=== PATIENT | female | born 1940 | race Caucasian/White ===

== ENCOUNTER 2022-04-22 09:10 | Day surgery (SDC) | payer MEDICARE, SELFPAY ==
[2022-04-14 15:18] VITALS: BMI 22.4
--- NOTE | 2022-04-22 09:10 | WPDHPUPDATE1 ---
History and Physical Update Update Date/Time: 04/22/22 09:10 History and Physical has been reviewed, including an updated exam of the patient. There are NO changes in the patient's condition. Risks, benefits, and alternatives have been discussed and questions answered. Patient agrees to proceed with procedure.
[2022-04-22] MEDS: OFLOXACIN 0.3% OPHTH SOLN 5 ML BTL 1 DROP AFFCTD EYE (10:30)
[2022-04-22] MEDS: TETRACAINE HCL 0.5% OPHTH SOLN 4 ML BTL 1 DROP AFFCTD EYE ×3 (10:30→10:40)
[2022-04-22 10:49] VITALS: BP 137/77; PULSE 70; RESP 20; TEMP 36.2; O2SAT 100
--- NOTE | 2022-04-22 10:50 | P.PNAN_ITS ---
Anes - Initial Pre Proc Eval Procedure: Operation Date: 04/22/22 11:00 Proposed Procedures p Cataract Extraction with Lens Implant-Right Eye - Capo Garzon MD Date/Time: 04/22/22 10:50 Surgeon: Capo Garzon MD Pre Op Diagnosis: Cataract Right Eye Patient Data Age: 81 Gender: F Height: 1.68 m Weight: 63 kg Last Vital Signs Temp 36.2 C L 04/22/22 10:49 Pulse 70 04/22/22 10:49 Resp 20 04/22/22 10:49 BP 137/77 04/22/22 10:49 Pulse Ox 100 04/22/22 10:49 O2 Del Method Room Air 04/22/22 10:49 Allergies Allergy/AdvReac Type Severity Reaction Status Date / Time NKDA Allergy Unknown NKDA Uncoded 04/14/22 15:17 Home Medications Medication Instructions Recorded Confirmed Type temazepam 15 mg capsule 15 mg PO DAILY #90 caps 12/01/21 04/14/22 Rx Patient hx anesthesia problems: none Family hx anesthesia problems: none Results Review: All pre-operative results and documents have been reviewed as part of the pre- operative evaluation. PMFSH Past Medical History Medical History Insomnia Tinnitus Surgical History Surgical History H/O section Hx of breast reduction, elective Family History Family History Father Multiple sclerosis Mother Heart problem Social History Social History Smoking status: Never smoker Second hand tobacco smoke exposure: No Alcohol intake: current Substance use: never Substance use type: does not use Living arrangements: with family Gender identity (if verbalized by the patient): Female Spiritual care concerns: No Agree to blood products: Yes Anes - Eval Final PreProcedure Day of Procedure 04/22/22 10:50 Patient weight: normal Heart: regular rate and rhythm Lungs: clear to auscultation Airway: Mallampati scale class II Neurological: other (alert) Last oral intake: >/= 8 hours ASA classification: II Emergent: no Anesthetic plan: proceed Anesthesia type and monitoring: monitored anesthesia care and standard monitoring Results Review: All pre-operative results and documents have been reviewed as part of the pre- operative evaluation. Informed Consent: The patient's anesthetic plan and its attendant risks and benefits were discussed with the patient/family/POA. Questions were solicited and answers provided to the satisfaction of the patient/family/POA.
[2022-04-22] MEDS: LIDOCAINE HCL 2% JELLY 5 ML TUBE 1 APPLIC AFFCTD EYE (11:38)
[2022-04-22] MEDS: LIDOCAINE HCL 1% PF INJ 5 ML VIAL 1 ML INTRAOCULA (11:40)
[2022-04-22] MEDS: HOME MEDICATION 1 EACH AFFCTD EYE (11:53)
[2022-04-22] MEDS: NEOMYCIN/POLYMYXIN/DEXAMETH OP OINT 3.5 GM TUBE 1 APPLIC AFFCTD EYE (11:54)
--- NOTE | 2022-04-22 11:54 | W.PM.PROC2 ---
Procedure Note - Detailed Date of Procedure 04/22/22 Pre-op Diagnosis Cataract Right Eye Post-op Diagnosis Same Procedure Performed Cataract Extraction (by Phacoemulsification) and lntraocular Lens Implant RIGHT eye Surgeon Capo Garzon MD Description of Procedure The eye was anesthetized with topical 0.75% bupivacaine. After intravenous sedation and placement of monitors, the patient was prepped and draped in the usual sterile manner. A lid speculum was placed. A paracentesis was made, and preservative free 1% lidocaine was instilled in the anterior chamber. The anterior chamber was then filled with Viscoat viscoelastic. A mickey keratome was used to create the wound. Continuous tear anterior capsulotomy was performed. The lens was hydro dissected before being removed with phacoemulsification. The remaining lenticular cortex was removed with aspiration. The capsular bag was polished and filled with viscoelastic material. An intraocular lens was chosen, inspected, irrigated and placed within the capsular bag where it was seen to be centered and stable. The viscoelastic material was aspirated. The wound was closed and found to be watertight. Ciloxan drops were placed in the eye. The speculum was removed. A Clemente shield was applied. The patient tolerated the procedure well and left the operating room in satisfactory condition. Implants See chart Complications None Condition Stable Disposition Same day
[2022-04-22 11:56] VITALS: BP 141/78; PULSE 63; RESP 19; O2SAT 99
--- NOTE | 2022-04-22 12:09 | WPDANESPN ---
Anes - Prog Note Post-Op Date/Time: 04/22/22 12:09 Cardiovascular status: normal Respiratory status: normal Airway patency: baseline Mental status: baseline Post-Op hydration status: normal Vital Signs: Last Vital Signs Temp 36.2 C L 04/22/22 10:49 Pulse 63 04/22/22 11:56 Resp 19 04/22/22 11:56 BP 141/78 H 04/22/22 11:56 Pulse Ox 99 04/22/22 11:56 O2 Del Method Room Air 04/22/22 11:56 Pain Score (VAS): 0 Patient Feedback: Patient satisfied with anesthetic care.
[2022-04-22] MEDS: acetaZOLAMIDE TAB 250 MG TABLET PO (12:10)
== END 2022-04-22 12:22 | disposition home or self-care (01) ==
PROVIDERS: PCP Family Medicine; Visit Provider Student in an Organized Health Care Education/Training Program
PROC: (CPT 66983; principal; 2022-04-22 11:00)
DX: H25.11 Age-related nuclear cataract, right eye (principal)
CPT/HCPCS: 66984

== ENCOUNTER 2022-05-06 11:16 | Outpatient (CLI) | payer MEDICARE, SELFPAY ==
[2022-05-06 18:40] LABS: Basophils Absolute Auto 0.1 K/mm3 (0.0-0.1); Basophils Percent Auto 0.6 % (0.2-1.2); Eosinophils Absolute Auto 0.2 K/mm3 (0-0.3); Hematocrit 35.8 % (37.0-47.0); Hemoglobin 11.4 g/dL (12.0-15.0); Immature Granulocyte Absolute 0.02 K/mm3 (0.00-0.031); Immature Granulocyte Percent A 0.2 % (0-0.5); Lymphocytes Absolute Auto 2.01 K/mm3 (0.9-3.2); Lymphocytes Percent Auto 23.2 % (18.3-44.2); Mean Corpuscular HGB Conc 31.8 g/dl (32-36); Mean Corpuscular Hemoglobin 30.9 pg (26-34); Mean Platelet Volume 9.2 fl (7.4-10.4); Monocytes Absolute Auto 0.8 K/mm3 (0.1-0.6); Monocytes Percent Auto 9.2 % (2.6-8.5); Neutrophils Absolute Auto 5.6 K/mm3 (1.3-6.7); Neutrophils Percent Auto 64.8 % (45.5-73.1); Platelet Count Result 299 k/mm3 (150-375); Red Blood Count 3.69 M/mm3 (4.2-5.4); White Blood Count 8.7 K/mm3 (4.5-10.0)
[2022-05-06 18:41] LABS: Alanine Aminotransferase 20 U/L (6-35); Albumin Level 4.4 g/dL (3.5-5.1); Alkaline Phosphatase 102 U/L (38-126); Anion Gap 11 mmol/L (8-16); Aspartate Amino Transferase 24 U/L (14-36); Bilirubin,Total 0.3 mg/dL (0.2-1.3); Blood Urea Nitrogen 27 mg/dL (7-17); Calcium 9.5 mg/dL (8.4-10.2); Carbon Dioxide 26 mmol/L (22-30); Chloride 101 mmol/L (98-107); Estimated Glomerular Filt Rate > 60; Glucose 93 mg/dL (65-110); Potassium 4.4 mmol/L (3.4-5.0); Sodium 138 mmol/L (137-145)
== END 2022-05-06 11:17 | disposition home or self-care (01) ==
LOC: ANHGOSHLAB 11:20
PROVIDERS: PCP Family Medicine; Visit Provider Family Medicine
DX: U07.1 COVID-19 (principal); R06.00 Dyspnea, unspecified
CPT/HCPCS: 36415; 80053; 84443; 85025

== ENCOUNTER → 2022-05-06 11:53 | Outpatient (CLI) | payer MEDICARE, SELFPAY ==
--- NOTE | ~2022-05-06 | XR_ITS ---
EXAMINATION: XR chest 2V Exam Date/Time: 05/06/2022 11:59 CDT HISTORY: R06.00 - Dyspnea, unspecified Comparison: 12/17/2018. RESULT: Lines, tubes, and devices: None. Lungs and pleura: Ill-defined, patchy groundglass opacity over the right lower lung. Cardiomediastinal silhouette: Stable. Other: No acute osseous or upper abdominal finding. IMPRESSION: Ill-defined right lower lung opacity may reflect atelectasis or the consolidation of pneumonia in the appropriate clinical context. Reviewed, dictated and finalized at location K. IMPRESSION: Ill-defined right lower lung opacity may reflect atelectasis or the consolidati on of pneumonia in the appropriate clinical context.
== END ==
PROVIDERS: PCP Family Medicine; Visit Provider Family Medicine
DX: R06.00 Dyspnea, unspecified (principal); U07.1 COVID-19; R91.8 Other nonspecific abnormal finding of lung field
CPT/HCPCS: 71046

== ENCOUNTER 2023-08-25 11:43 | Outpatient (CLI) | payer MEDICARE, SELFPAY ==
[2023-08-25 18:00] LABS: Basophils Percent Auto 0.7 % (0.2-1.2); Eosinophils Absolute Auto 0.1 K/mm3 (0-0.3); Hematocrit 38.3 % (37.0-47.0); Hemoglobin 11.9 g/dL (12.0-15.0); Immature Granulocyte Absolute 0.01 K/mm3 (0.00-0.031); Immature Granulocyte Percent A 0.2 % (0-0.5); Lymphocytes Percent Auto 30.2 % (18.3-44.2); Mean Corpuscular HGB Conc 31.1 g/dl (32-36); Mean Corpuscular Hemoglobin 31.1 pg (26-34); Monocytes Absolute Auto 0.5 K/mm3 (0.1-0.6); Monocytes Percent Auto 8.7 % (2.6-8.5); Neutrophils Absolute Auto 3.3 K/mm3 (1.3-6.7); Neutrophils Percent Auto 58.2 % (45.5-73.1); Platelet Count Result 282 k/mm3 (150-375); Red Blood Count 3.83 M/mm3 (4.2-5.4); Red Cell Distribution Width 13.4 % (11.5-14.5); White Blood Count 5.6 K/mm3 (4.5-10.0)
[2023-08-25 18:33] LABS: Alanine Aminotransferase 24 U/L (6-35); Albumin Level 4.2 g/dL (3.5-5.1); Alkaline Phosphatase 121 U/L (38-126); Anion Gap 2 mmol/L (8-16); Aspartate Amino Transferase 34 U/L (14-36); Bilirubin,Total 0.5 mg/dL (0.2-1.3); Blood Urea Nitrogen 20 mg/dL (7-17); Calcium 9.8 mg/dL (8.4-10.2); Carbon Dioxide 30 mmol/L (22-30); Chloride 107 mmol/L (98-107); Estimated Glomerular Filt Rate > 60; Glucose 93 mg/dL (65-110); Sodium 139 mmol/L (137-145)
== END 2023-08-25 11:44 | disposition home or self-care (01) ==
LOC: ANHGOSHLAB 11:44
PROVIDERS: PCP Family Medicine; Visit Provider Nurse Practitioner Family
DX: G47.00 Insomnia, unspecified (principal); R25.2 Cramp and spasm
CPT/HCPCS: 36415; 80053; 84443; 85025

== ENCOUNTER → 2023-08-25 12:02 | Outpatient (CLI) | payer MEDICARE, SELFPAY ==
--- NOTE | ~2023-08-25 | XR_ITS ---
EXAMINATION: XR chest 2V DATE: 08/25/2023 12:14 INDICATION: Dyspnea, unspecified. TECHNIQUE: Frontal and lateral views of the chest were obtained. COMPARISON: Chest 2 views 05/06/2022 FINDINGS: There is no pneumonia, pleural effusion, or pneumothorax. The heart size is normal. IMPRESSION: 1. No acute cardiopulmonary disease. Reviewed, dictated and finalized at location E. PORTER
== END ==
PROVIDERS: PCP Family Medicine; Visit Provider Nurse Practitioner Family
DX: R06.00 Dyspnea, unspecified (principal)
CPT/HCPCS: 71046

== ENCOUNTER 2023-09-16 09:15 | Outpatient (CLI) | payer MEDICARE, SELFPAY ==
--- NOTE | ~2023-09-16 | NM_ITS ---
EXAMINATION: NM stress w perf spect multi DATE: 09/16/2023 11:32 INDICATION: Orthopnea TECHNIQUE: Rest images were obtained following intravenous administration of 8.9 mCi Tc99m tetrofosmi n (YaBeam). The patient performed an exercise activity. At peak exercise, 28.8 mCi Tc99m tetrofosmin (Myoview) was administered intravenously, and stress images were obtained. Data was reconstructed in to short axis and horizontal and vertical long axis SPECT images. Gated SPECT images were also obtain ed. COMPARISON: None. FINDINGS: There is normal left ventricular perfusion without definite evidence of reversible or fixed perfusion abnormality to suggest ischemia or infarction. There is normal left ventricular chamber size, wall motion and ejection fraction. Left ventricular ejection fraction measures 70%. IMPRESSION: 1. Normal myocardial perfusion during stress with no definitive infarct or ischemia. 2. Left ventricular ejection fraction measuring 70%. Reviewed, dictated and finalized at location L. ET [employer] MANAGER IMPRESSION: 1. Normal myocardial perfusion during stress with no definitive infarct or isch emia. 2. Left ventricular ejection fraction measuring 70%.
--- NOTE | 2023-09-16 09:34 | EST_ITS ---
Patient Info Name: Audrey Joel Age: 83 years : 1940 Gender: Female Ht: 66 in Wt: 145 lbs BSA: 1.76 m2 HR: 57 bpm BP: 138 / 71 mmHg Heart Rhythm: Sinus Rhythm Exam Date: 09/16/2023 10:35 AM Exam Location: [facility] Patient Status: Outpatient Admit Date: 09/16/2023 Staff Ordering Physician: Mary Leo Attending Provider: Mary Leo Exercise Technologist: Cindy Little CT Exercise Physician: Sami Garcia DO Exam Type: CA stress test treadmill w NM Study Info Indications R06.01 - Orthopnea A nuclear stress test was performed. Summary 1. 1. Negative Mykel exercise stress test for ischemic ST changes by ECG criteria. 2. 2. Reduced functional capacity, achieving 5 METs of workload. 3. 3. Hypertensive response to exercise. 4. 4. Appropriate HR response to exercise. 5. 5. Appropriate HR recovery at 1 minute post exercise. 6. 6. Nuclear scan to follow and will be reported separately. Please correlate with it. 7. 7. Patient informed of the above results. Protocol: Mykel Stress ECG Details Stage: REST Duration (min): 1 min : 9 sec Speed (mph): 0.0 Grade (%): 0 HR (bpm): 59 SBP (mmHg): 138 DBP (mmHg): 71 METS: --- Stage: REST Duration (min): 6 min : 23 sec Speed (mph): 0.0 Grade (%): 0 HR (bpm): 68 SBP (mmHg): 138 DBP (mmHg): 71 METS: --- Stage: STAGE 1 Duration (min): 1 min : 0 sec Speed (mph): 1.7 Grade (%): 10 HR (bpm): 85 SBP (mmHg): 138 DBP (mmHg): 71 METS: --- Stage: STAGE 1 Duration (min): 2 min : 0 sec Speed (mph): 1.7 Grade (%): 10 HR (bpm): 102 SBP (mmHg): 138 DBP (mmHg): 71 METS: --- Stage: STAGE 1 Duration (min): 3 min : 0 sec Speed (mph): 1.7 Grade (%): 10 HR (bpm): 116 SBP (mmHg): 217 DBP (mmHg): 96 METS: --- Stage: STAGE 2 Duration (min): 0 min : 16 sec Speed (mph): 2.5 Grade (%): 12 HR (bpm): 118 SBP (mmHg): 217 DBP (mmHg): 96 METS: --- Stage: RECOVERY Duration (min): 0 min : 43 sec Speed (mph): 0.0 Grade (%): 0 HR (bpm): 121 SBP (mmHg): 266 DBP (mmHg): 105 METS: --- Stage: RECOVERY Duration (min): 1 min : 43 sec Speed (mph): 0.0 Grade (%): 0 HR (bpm): 101 SBP (mmHg): 266 DBP (mmHg): 105 METS: --- Stage: RECOVERY Duration (min): 2 min : 43 sec Speed (mph): 0.0 Grade (%): 0 HR (bpm): 92 SBP (mmHg): 266 DBP (mmHg): 105 METS: --- Stage: RECOVERY Duration (min): 3 min : 40 sec Speed (mph): 0.0 Grade (%): 0 HR (bpm): 88 SBP (mmHg): 226 DBP (mmHg): 77 METS: --- Rest HR: 68 bpm Peak HR: 121 bpm Rest Sys BP: 138 mmHg Peak Sys BP: 240 mmHg Max Pred HR: 138 bpm % Max Pred HR: 88 % Target HR: 117 bpm Max RPP: 29,040 bpm*mmHg Crawford Score: -5 BP Response: Patient exhibited a hypertensive response with stress Termination Reason: Reached target heart rate or workload Cardiac Symptoms: Shortness of breath Max ST Seg Deviation: 2 mm Total Time: 3 min : 16 sec Rest Griffith BP: 71 mmHg Peak Griffith BP: 105 m
== END 2023-09-16 09:16 | disposition home or self-care (01) ==
PROVIDERS: PCP Family Medicine; Visit Provider Nurse Practitioner Family
DX: R06.01 Orthopnea (principal); R06.02 Shortness of breath
CPT/HCPCS: 78452; 93017; A9502

== ENCOUNTER 2024-02-02 11:45 | Outpatient (CLI) | payer MEDICARE, SELFPAY ==
--- NOTE | ~2024-02-02 | XR_ITS ---
Lumbosacral Spine: AP and lateral views Clinical History: Pain Findings: There is levoscoliosis. No acute fracture seen. Probable grade 1 retrolisthesis of L3 over L4. There is severe degenerative disc narrowing throughout the lumbar spine. There is severe facet ar thropathy throughout the lumbar spine. The sacroiliac joints are normally outlined. 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 Probable grade 1 retrolisthesis of L3 over L4. Levoscoliosis. Reviewed, dictated and finalized at location M. 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 Probable grade 1 retrolisthesis of L3 over L4. Levoscoliosis.
--- NOTE | ~2024-02-02 | XR_ITS ---
AP view of the pelvis and AP and lateral views of the bilateral hips Clinical history: Pain Findings: No acute fracture or dislocation is seen. Osseous alignment is anatomic. Bilateral hip and SI joint spaces are preserved. Soft tissues are unremarkable. Impression: No significant abnormality is seen. Reviewed, dictated and finalized at location . Impression: No significant abnormality is seen.
== END 2024-02-02 11:46 ==
PROVIDERS: PCP Family Medicine; Visit Provider Nurse Practitioner Family
DX: M54.9 Dorsalgia, unspecified (principal); M47.896 Other spondylosis, lumbar region; M41.86 Other forms of scoliosis, lumbar region
CPT/HCPCS: 72100; 73521

== ENCOUNTER 2024-08-11 09:59 | Outpatient (CLI) | payer MEDICARE, SELFPAY | END 2024-08-11 10:00 | disposition home or self-care (01) | LOC: ANHAUDIO 10:00 | PROVIDERS: PCP Family Medicine; Visit Provider Family Medicine | DX: H90.3 Sensorineural hearing loss, bilateral (principal) | CPT/HCPCS: 92557; 92567 ==